=== PATIENT | female | born 1955 | race Caucasian/White ===

== ENCOUNTER 2016-10-17 08:40 | Emergency (ER) | payer OTHER ==
[2016-10-17] MEDS ORDERED: SODIUM CHLORIDE 0.9% 1,000 ML ONE (10:11)
[2016-10-17] MEDS ORDERED: DILAUDID 1 MG/ML AMP ONE (12:05)
[2016-10-17] MEDS ORDERED: ONDANSETRON ODT 4 MG TAB ONE (12:06)
== END 2016-10-17 12:54 | disposition home or self-care (01) ==
LOC: ER 08:40
CPT/HCPCS: 36415 ×2; 70450 ×2; 71010 ×2; 80053 ×2; 82550 ×2; 83735 ×2; 84484 ×2; 85025 ×2; 85610 ×2; 85730 ×2; 93005 ×2; 96374 ×2; 99285; J1170

== ENCOUNTER 2016-11-11 13:56 | Observation (INO) | payer OTHER ==
[~2016-11-11] VITALS: Ht 167.6 cm; Wt 78.0 kg
[2016-11-11 15:30] VITALS: BP_SYST 110; BP_SYST 118; RESP 18; TEMP 97.9; BMI 26.6
[2016-11-11 15:51] VITALS: Ht 167.6 cm; Wt 78.0 kg
[2016-11-11] MEDS ORDERED: DUONEB INH PRN (16:35)
[2016-11-11] MEDS ORDERED: LORAZEPAM 0.5 MG TAB PO PRN (16:35)
[2016-11-11] MEDS ORDERED: LACT RINGERS 1,000 ML IV SCH (16:40)
[2016-11-11] MEDS ORDERED: LACT RINGERS 1,000 ML IV ONE (16:45)
[2016-11-11 19:45] VITALS: BP_SYST 100; RESP 18; TEMP 98.1
[2016-11-11] MEDS: LORAZEPAM 0.5 MG TAB PO PRN (21:51)
[2016-11-11 23:06] VITALS: BP_SYST 108; RESP 16; TEMP 98
[2016-11-11] MEDS: WARFARIN 4 MG TAB PO SCH (23:43)
[2016-11-12] VITALS (8 sets, daily range): BP systolic 97–128; RESP 12–20; TEMP 97.4–98.2
[2016-11-12] MEDS: LEVOTHYROXINE 0.125 MG TAB PO SCH (06:47)
[2016-11-12] MEDS: PANTOPRAZOLE 40 MG TAB PO SCH (10:35)
[2016-11-12] MEDS: SODIUM CHLOR 0.9% W/KCL 20MEQ 1,000 ML IV SCH ×2 (12:52→22:15)
[2016-11-12] MEDS: WARFARIN 4 MG TAB PO SCH (17:04)
[2016-11-12] MEDS ORDERED: DUONEB INH PRN (21:15)
[2016-11-12] MEDS: LORAZEPAM 0.5 MG TAB PO PRN (23:43)
[2016-11-13 03:14] VITALS: BP_SYST 111; RESP 16; TEMP 97.9
[2016-11-13] MEDS: PANTOPRAZOLE 40 MG TAB PO SCH (06:20)
[2016-11-13] MEDS: LEVOTHYROXINE 0.125 MG TAB PO SCH (06:20)
[2016-11-13] MEDS: SODIUM CHLOR 0.9% W/KCL 20MEQ 1,000 ML IV SCH (06:21)
[2016-11-13 07:18] VITALS: BP_SYST 107; RESP 14; TEMP 97.5
== END 2016-11-13 09:44 | disposition home or self-care (01) ==
LOC: ENRESERVDT → CANRESERV → ENRESERVTM → 3NT 14:57 → ENPENDDIS 14:57
PROVIDERS: ADMIT Internal Medicine; ATTEND Internal Medicine
DX: J20.9 Acute bronchitis, unspecified (principal); E86.0 Dehydration; Z79.899 Other long term (current) drug therapy
CPT/HCPCS: 71020; 71250; 80053; 85025; 85610; 87804; 94640; 96360; 96361; 97799; G0378; J7120; 94799